=== PATIENT | female | born 1980 | race Caucasian/White ===

== ENCOUNTER 2016-10-28 12:16 | Emergency (ER) | payer OTHER ==
[2016-10-28] MEDS ORDERED: KETOROLAC TROMETHAMINE 60 MG/2 ML VIAL IM ONE ×2 (12:40→12:43)
[2016-10-28] MEDS ORDERED: PROMETHAZINE HCL 25 MG/ML AMPUL IM ONE (12:40)
[2016-10-28] MEDS ORDERED: PROMETHAZINE HCL 25 MG/ML AMPUL ONE (12:44)
--- NOTE | 2016-10-28 12:50 | ERNOTE ---
Back Pain ER HPI Date of Service: 10/28/16 Presenting Symptoms: injury/pain to back Time Seen by Provider: 10/28/16 12:32 Source: patient, RN notes reviewed Exam Limitations: no limitations Immunizations: IMMUNIZATION HX Immunizations Up to Date Yes History of Influenza Vaccine Yes Allergies/Adverse Reactions: Allergies No Known Allergies Allergy (Verified 10/28/16 12:24) Home Medications: HOME MEDICATIONS Cyclobenzaprine HCl [Flexeril] 10 mg PO DAILY PRN #10 tab 10/28/16 [Last Taken Unknown] Ibuprofen [Motrin] 600 mg PO Q6H PRN #40 tab 10/28/16 [Last Taken Unknown] Narrative: 35 y/o female ambulatory to ED for mid back pain radiating into her chest that began 2 days ago. She reports that it feels like something pushing into her back from inside her chest. She was treated for pneumonia approximately 2 wks ago. She had presented for pain in her left chest thinking that she "had a rib out of place" but was found to have pneumonia in the left lung on xray. She was treated with an antibiotic. She reports that she never did have much of a cough. Timing: Reports: getting worse Quality/Severity: Reports: severe Location of pain: Reports: mid back Activities at Onset: Reports: other - present on awakening Recent Injury?: Reports: no Modifying Factors - (Improves): Reports: nothing Modifying Factors - (Worsens): Reports: cough/deep breaths Prior Treament: Reports: recently seen, treated by physician. Denies: currently on antibiotics Review of Systems - Review of Systems Constitutional: Present: recent illness, chills EYE: Present: no symptoms reported, double vision Respiratory: Present: shortness of breath. Absent: cough Cardiology: Present: chest pain, palpitations. Absent: syncope Gastrointestinal/Abdominal: Present: nausea. Absent: vomiting, abdominal pain Genitourinary: Present: no symptoms reported Musculoskeletal: Present: back pain. Absent: neck pain, joint pain Skin: Absent: rash, lesions, lumps Neurological: Absent: headache, dizziness/light-headedness Endocrine: Present: no symptoms reported Hematologic/Lymphatic: Present: no symptoms reported Psych: Present: anxiety - Patient's Past Medical History Patient History - Medical: No pertinent hx Patient History - Cardiac/Respiratory: Pneumonia Patient History - Cancer: No Hx of Cancer Patient History - Surgical Procedures: , Tubal Ligation LMP (females 10-50): now LMP (Calendar): 10/27/16 - Family History mom Family History - Medical: , Diabetes Type 2 dad Family History - Medical: Family History - Cardiac/Respiratory: CVA/Stroke - Social History Living Situations: spouse Smoking Status: Never smoker Have you smoked in the past 12 months: No Alcohol Use: none Drug Use: none Physical Exam - Physical Exam General Appearance: Present: wd/wn, alert, moderate distress, anxious, other - tearful Neck: Present: normal inspection, nontender, supple Respiratory: Present: no respiratory distress, normal breath sounds, chest nontender, lungs clear, accessory muscle use - mild Cardiovascular/Chest: Present: regular rate, rhythm, no murmur, normal peripheral pulses Gastrointestinal/Abdominal: Present: normal bowel sounds, nontender, nondistended, soft Back Exam: Present: normal range of motion, no CVA tenderness, no vertebral tenderness, other - tenderness throughout thoracic paraspinal muscles Extremity Exam: Present: normal inspection, no edema Neurological Exam: Present: alert, oriented, normal mood/affect, no motor/ sensory deficits Skin Exam: Present: diaphoresis, pallor ED Progress - Results and Orders Patient's Lab Results:: I have reviewed the patient's lab results. - Vital Signs Patient's Vital Signs:: I have reviewed the patient's vital signs. Vital Signs: Vital Signs 10/28/16 12:21 Temperature 36.4 C Pulse Rate 86 Respiratory 16 Rate Blood Pressure 125/75 O2 Sat by Pulse 100 Oximetry - EKG EKG: other - Sinus arrhythmia, minimal ST depression - X-Ray X-Ray #1 X-Ray: chest Interpretation: Reviewed by me X-ray Comments: TWO VIEW CHEST Comparison: NONE Technique: Upright frontal and lateral views of the chest were obtained. Findings: The cardiac silhouette is within normal limits of size. The mediastinum and hilum are with in normal limits. The lung sigala are clear. I do not see evidence for a definable infiltrate, effusion , or pulmonary edema. I do not see evidence for definable acute osseous abnormality on this chest film. IMPRESSION: 1. NO ACUTE CARDIOPULMONARY PROCESS. Electronically signed by Fernando Ca M.D.. - Progress/Reassessment Chief Complaint: Back Pain Progress:: Improved Departure Clinical Impression: Acute costochondritis - Departure Disposition: Home self-care Condition: Good Instructions: Costochondritis, [id number], Form - Excuse from Work, School, or Physical Activity Referrals: Angelito Harrison DO [Primary Care Provider] - Prescriptions: Cyclobenzaprine HCl [Flexeril] 10 mg PO DAILY PRN #10 tab PRN Reason: MUSCLE SPASMS Ibuprofen [Motrin] 600 mg PO Q6H PRN #40 tab PRN Reason: Pain
[2016-10-28 12:58] LABS: Hematocrit 38.9 % (37.0-47.0); Hemoglobin 13.3 gm/dL (12.5-16.0); Mean Cell Volume 88.2 fl (78-100); Mean Corpuscular Hemoglobin 30.2 pg (27-31); Mean Corpuscular Hgb Conc 34.2 g/dl (32-36); Mean Platelet Volume 9.8 fl (6.0-9.5); Neutrophil # 5.2 K/mm3 (1.3-6.0); Neutrophil % 66.4 % (42-75.0); Platelet Count 217 K/mm3 (150-450); Red Blood Count 4.41 M/mm3 (4.2-5.4); Red Cell Distribution Width 11.9 % (11.5-14.0)
[2016-10-28 13:07] LABS: White Blood Count 7.8 K/mm3 (4.0-10.5)
[2016-10-28 13:12] LABS: ALT 20 U/L (19-67); AST 13 U/L (0-48); Albumin * 3.9 gm/dl (3.4-5.0); Alkaline Phosphatase * 53 U/L (50-170); Anion Gap 14.4 mmol/L (6.8-13.8); BUN/Creatinine Ratio 15.1 (9.0-21.6); Bilirubin, Total 0.3 mg/dL (0.0-1.1); Blood Urea Nitrogen 14 mg/dL (3-23); Ca. Corrected For Albumin 9.3 mg/dL (8.4-10.2); Calcium * 9.5 mg/dL (7.9-10.9); Carbon Dioxide 25.2 mmol/L (24-32.6); Chloride 105 mmol/L (97-106); Glucose * 109 mg/dL (70-110); Potassium 3.6 mmol/L (3.4-4.6); Sodium 141 mmol/L (132-142); Total Protein 7.9 gm/dL (6.2-8.2); Troponin I Less than 0.017 ng/ml (0.00-0.10)
[2016-10-28 13:23] VITALS: BP 114/79
== END 2016-10-28 14:01 | disposition home or self-care (01) ==
LOC: ER 12:16
DX: M94.0 Chondrocostal junction syndrome [Tietze] (principal)